=== PATIENT | male | born 1970 | race Caucasian/White ===

== ENCOUNTER → 2019-11-25 19:22 | Outpatient (BNVA) | payer BC, SELFPAY | PROVIDERS: Family Provider Family Medicine; Visit Provider Nurse Practitioner | DX: J10.1 Influenza due to other identified influenza virus with other respiratory manifestations (principal); R05 Cough; R50.9 Fever, unspecified | CPT/HCPCS: 87804 ==

== ENCOUNTER → 2021-10-26 15:10 | Outpatient (BNVA) | payer OTHER, SELFPAY | PROVIDERS: Family Provider Family Medicine; Visit Provider Nurse Practitioner | DX: Z20.822 Contact with and (suspected) exposure to COVID-19 (principal) | CPT/HCPCS: 87635 ==

== ENCOUNTER 2022-02-07 04:59 | Emergency (ER) | payer BC, SELFPAY ==
[2022-02-07 05:01] VITALS: BP 162/102; PULSE 66; RESP 22; TEMP 36.5; O2SAT 92; BMI 31.1
--- NOTE | 2022-02-07 05:21 | CTR_ITS ---
PROCEDURE INFORMATION: Exam: CT Abdomen And Pelvis Without Contrast Exam date and time: 02/07/2022 5:31 AM Age: 51 years old Clinical indication: Abdominal pain; Localized; Prior surgery; Surgery date: 6+ months; Surgery type: Left inguinal hernia repair; Patient HX: C/O llq/back pain. ; Additional info: Left flank pain TECHNIQUE: Imaging protocol: Computed tomography of the abdomen and pelvis without contrast. Radiation optimization: All CT scans at this facility use at least one of these dose optimization techniques: automated exposure control; mA and/or kV adjustment per patient size (includes targeted exams where dose is matched to clinical indication); or iterative reconstruction. COMPARISON: [facility] Abdomen Limited 08/01/2018 8:32 AM RADIATION DOSE METRICS: Total DLP (mGy-cm): [id number] FINDINGS: Liver: Fatty liver. Gallbladder and bile ducts: Small stone noted in the gallbladder. Cholelithiasis. No pericholecystic fluid. No gallbladder wall thickening. Pancreas: No ductal dilation. Spleen: There is splenic granulomas. Adrenal glands: Normal. No mass. Kidneys and ureters: Nonobstructing calculus in the lower pole of the right kidney. No right hydronephrosis. Mild left hydronephrosis from a 3 mm stone in the proximal ureter and a 3-4 mm stone in the distal ureter just slightly proximal to the UVJ. Stomach and bowel: No obstruction. No mucosal thickening. Appendix: No evidence of appendicitis. Intraperitoneal space: No free air. No significant fluid collection. Vasculature: No abdominal aortic aneurysm. Lymph nodes: No enlarged lymph nodes. Urinary bladder: Unremarkable as visualized. Reproductive: Unremarkable as visualized. Bones/joints: Diffuse osteopenia which may be secondary to a metabolic/renal abnormality, correlate clinically. No acute fracture. Soft tissues: Unremarkable. CT/CT kidney stone [id number] IMPRESSION: Mild left hydronephrosis from a 3 mm stone in the proximal ureter and a 3-4 mm stone in the distal ureter just slightly proximal to the UVJ.
--- NOTE | 2022-02-07 05:24 | W.ED.BACK ---
Documented by User: Mahesh Torrez DO 02/07/22 06:01 HPI - Back Pain/Injury General: Chief Complaint: Back Pain/Injury Stated Complaint: low back pain, abd pain Time Seen by Provider: 02/07/22 05:21 History of Present Illness: 51-year-old gentleman with a history of kidney stones in the distant past. He presents with sudden onset left-sided flank and abdominal pain starting a couple hours ago. It woke him from sleep. He has vomited 2-3 times. He notes that he had dark urine. He is drank a couple of bottles of water without improvement in his urine color. He states he is in quite a bit of pain. No fever. No diarrhea. MD elicited complaint: back pain Onset (ago): hour(s) Timing: constant Severity: moderate Similar Symptoms Previously: Yes Quality: sharp and stabbing Location: left flank Radiation: abdomen Exacerbating factors: none Relieving factors: none Context: history of kidney stones Associated symptoms: Reports abdominal pain, chills, nausea and vomiting; Deny change in bowel habits, fecal incontinence or fever(s) Review of Systems Const: Reports: chills; Denies: fever(s) Card: Denies: chest pain Resp: Denies: dyspnea GI: Reports: abdominal pain, nausea and vomiting; Denies: fecal incontinence or change in bowel habits Musc: Reports: back pain; Denies: extremity pain Skin/Breast: Denies: rash PFSH ED PFSH: Social History Smoking and tobacco status: current some day smoker Physical Exam Const: COMMON NORMALS: no acute distress HENMT: COMMON NORMALS: normocephalic, atraumatic and Normal external nose present HEAD & SCALP: normocephalic and atraumatic NOSE: Normal external nose present and Normal nares present Eye: COMMON NORMALS: Equal, round and reactive pupils present and EOMs intact bilaterally PUPIL: Yes Equal, round and reactive pupils present Neck/C-Spine: GENERAL: Yes trachea midline Resp: COMMON NORMALS: normal respiratory effort, No use of accessory muscles and clear to auscultation bilaterally AUSCULTATION: clear to auscultation bilaterally Cardio: COMMON NORMALS: regular rate and regular rhythm RATE: regular rate RHYTHM: regular rhythm GI: COMMON NORMALS: Soft to palpation INSPECTION: Yes abdominal distension (Mild) PALPATION: Yes Soft to palpation and Yes Tenderness to palpation present (GI) Details: LUQ : BLADDER/KIDNEY EXAM: Yes CVA tenderness on the left Back/Pelvis: GENERAL BACK: Yes CVA tenderness CVA tenderness: left Extremity: COMMON NORMALS: normal to inspection Neuro: RODERICK COMA SCALE: document GCS findings Roderick coma scale eye opening: Spontaneous [place] coma scale verbal response: Orientated Roderick coma scale motor response: Obey commands [place] coma scale total score: 15 Course Vital Signs: Vital signs: Vital Signs Temperature 97.7 F 02/07/22 05:01 Pulse Rate 69 02/07/22 07:33 Respiratory Rate 15 02/07/22 07:33 Blood Pressure 135/86 02/07/22 07:33 Pulse Oximetry 96 02/07/22 07:33 MDM - Back Pain/Injury Medical Decision Making Left flank and left abdominal pain in a gentleman with dark urine, and a history of kidney stones. No fever. No vomiting here. He is received a milligram of Dilaudid, 4 of Zofran, and is getting IV fluids. CT has been done and read is pending. He has not been able to give us urine sample yet. He will be checked out to Dr. Cheatham at shift change. Labs : 02/07/22 05:15 02/07/22 05:15 Radiology Impressions Abdomen/Pelvis CT 02/07/22 05:21 IMPRESSION: Mild left hydronephrosis from a 3 mm stone in the proximal ureter and a 3-4 mm stone in the distal ureter just slightly proximal to the UVJ. Laboratory Results WBC 8.4 10^3/uL (4.0-10.0) 02/07/22 05:15 RBC 5.28 10^6/uL (4.1-5.3) 02/07/22 05:15 Hgb 16.0 g/dL (11.7-16.6) 02/07/22 05:15 Hct 47.5 % (42.0-52.0) 02/07/22 05:15 MCV 90.0 fl (80-94) 02/07/22 05:15 MCH 30.3 pg (28.0-34.0) 02/07/22 05:15 MCHC 33.7 g/dL (30.0-36.0) 02/07/22 05:15 RDW 12.9 % (12.1-15.1) 02/07/22 05:15 Plt Count 258 10^3/cmm (130-400) 02/07/22 05:15 MPV 10.8 fL (7.4-10.4) H 02/07/22 05:15 Neut % (Auto) 70.6 % 02/07/22 05:15 Lymph % (Auto) 18.3 % 02/07/22 05:15 [place] % (Auto) 9.0 % 02/07/22 05:15 Eos % (Auto) 1.3 % 02/07/22 05:15 Baso % (Auto) 0.4 % 02/07/22 05:15 Neut # (Auto) 5.93 10^3/uL (1.8-7.7) 02/07/22 05:15 Lymph # (Auto) 1.5 10^3/uL (0.8-4.8) 02/07/22 05:15 [place] # (Auto) 0.8 10^3/uL (0.2-0.9) 02/07/22 05:15 Eos # (Auto) 0.1 10^3/uL (0.0-0.8) 02/07/22 05:15 Baso # (Auto) 0.0 10^3/uL (0.0-0.1) 02/07/22 05:15 Nucleated RBC % (auto) 0 % 02/07/22 05:15 Nucleated RBCs # 0.0 /100WBC 02/07/22 05:15 Sodium 139 mmol/L (136-145) 02/07/22 05:15 Potassium 3.6 mmol/L (3.5-5.1) 02/07/22 05:15 Chloride 104 mmol/L (98-107) 02/07/22 05:15 Carbon Dioxide 23 mmol/L (22-29) 02/07/22 05:15 Anion Gap 15.6 (5-19) 02/07/22 05:15 BUN 14 mg/dL (6-20) 02/07/22 05:15 Creatinine 0.9 mg/dL (0.7-1.2) 02/07/22 05:15 GFR Calculation 88.6 mL/min (90-130) L 02/07/22 05:15 Glucose 123 mg/dL (65-115) H 02/07/22 05:15 Calculated Osmolality 290 mOsm/kg (285-295) 02/07/22 05:15 Calcium 9.4 mg/dL (8.5-10.5) 02/07/22 05:15 Total Bilirubin 0.4 mg/dL (0.15-1.2) 02/07/22 05:15 AST 23 U/L (0-40) 02/07/22 05:15 ALT 30 U/L (0-41) 02/07/22 05:15 Alkaline Phosphatase 139 IU/L (40-130) H 02/07/22 05:15 C-Reactive Protein 12.6 mg/L (0.0-4.9) H 02/07/22 05:15 Total Protein 7.1 g/dL (6.6-8.7) 02/07/22 05:15 Albumin 4.4 g/dL (3.5-5.2) 02/07/22 05:15 Globulin 2.7 g/dL (1.3-4.6) 02/07/22 05:15 Lipase 35 U/L (13-60) 02/07/22 05:15 Urine Color Yellow (Yellow) 02/07/22 06:55 Urine Appearance Clear (CLEAR) 02/07/22 06:55 Urine pH 5 (5-7) 02/07/22 06:55 Ur Specific [place] 1.015 (1.005-1.030) 02/07/22 06:55 Urine Protein Neg (Negative) 02/07/22 06:55 Urine Glucose (UA) Norm (Normal) 02/07/22 06:55 Urine Ketones Negative (Negative) 02/07/22 06:55 Urine Blood 3+ (Negative) H 02/07/22 06:55 Urine Nitrate Negative (Negative) 02/07/22 06:55 Urine Bilirubin Neg (Negative) 02/07/22 06:55 Urine Urobilinogen Norm mg/dL (Negative) 02/07/22 06:55 Ur Leukocyte Esterase Negative (Negative) 02/07/22 06:55 Urine RBC 40-50 /hpf (0-2) H 02/07/22 06:55 Urine WBC Rare /hpf (0-5) 02/07/22 06:55 Ur Squamous Epith Cells Rare /hpf (0-5) 02/07/22 06:55 Calcium Oxalate Crystal 0-4 /hpf H 02/07/22 06:55 Amorphous Sediment Not Reportable 02/07/22 06:55 Urine Bacteria Trace /hpf (NONE) 02/07/22 06:55 Urine Mucus Trace /hpf 02/07/22 06:55 Discharge Plan Discharge Patient Disposition: Home Clinical Impression: Left nephrolithiasis Condition: Stable Prescriptions: New hydrocodone-acetaminophen 5-325 mg tablet 1 tab PO Q6H PRN (Reason: pain) Qty: 20 0RF promethazine 25 mg tablet 25 mg PO Q6H PRN (Reason: nausea and vomiting) Qty: 20 0RF tamsulosin 0.4 mg capsule 0.4 mg PO DAILY Qty: 14 0RF No Action sulfasalazine 500 mg tablet 1 gm PO TID 0RF Discharge Orders: Discharge ED (Routine); Ordered 02/07/22 Ordered By: Nicholas Cheatham Discharge Diet: Usual diet Discharge Activity: Increase activity as tolerated Patient Instructions: Opioid Safety Activity Restrictions/Additional Instructions: health plan manager will make arrangements for you to follow-up with urology strain urine for analysis if passed. Sign Out Sign Out Data: Patient Sign Out occurred on 02/07/22 at 06:40. Patient's care was discussed, and care was transferred from to Nicholas Cheatham DO. Coding Level of Care Code ED Devops Developer for [place] Fwd Exam Comprehensive Documented by User: Nicholas Cheatham DO 02/07/22 10:45 HPI - Back Pain/Injury General: Chief Complaint: Back Pain/Injury Stated Complaint: low back pain, abd pain Time Seen by Provider: 02/07/22 05:21 PFSH ED PFSH: Social History Smoking and tobacco status: current some day smoker Physical Exam Neuro: RODERICK COMA SCALE: document GCS findings [place] coma scale total score: 15 Course Vital Signs: Vital signs: Vital Signs Temperature 97.7 F 02/07/22 05:01 Pulse Rate 69 02/07/22 07:33 Respiratory Rate 15 02/07/22 07:33 Blood Pressure 135/86 02/07/22 07:33 Pulse Oximetry 96 02/07/22 07:33 MDM - Back Pain/Injury Medical Decision Making Left flank and left abdominal pain in a gentleman with dark urine, and a history of kidney stones. No fever. No vomiting here. He is received a milligram of Dilaudid, 4 of Zofran, and is getting IV fluids. CT has been done and read is pending. He has not been able to give us urine sample yet. He will be checked out to Dr. Cheatham at shift change. Patient has a 3 mm stone proximally in the left ureter and a 3 to 4 mm stone at the U UVJ.Will discharge home with Flomax strain urine tamsulosin: Hydrocodone Zofran to use as needed follow-up with Dr. Lynch. If pain uncontrolled return. Medical Records I reviewed the patient's medical records. Labs I reviewed the patient's lab results. : 02/07/22 05:15 02/07/22 05:15 Radiology Impressions Abdomen/Pelvis CT 02/07/22 05:21 IMPRESSION: Mild left hydronephrosis from a 3 mm stone in the proximal ureter and a 3-4 mm stone in the distal ureter just slightly proximal to the UVJ. Laboratory Results WBC 8.4 10^3/uL (4.0-10.0) 02/07/22 05:15 RBC 5.28 10^6/uL (4.1-5.3) 02/07/22 05:15 Hgb 16.0 g/dL (11.7-16.6) 02/07/22 05:15 Hct 47.5 % (42.0-52.0) 02/07/22 05:15 MCV 90.0 fl (80-94) 02/07/22 05:15 MCH 30.3 pg (28.0-34.0) 02/07/22 05:15 MCHC 33.7 g/dL (30.0-36.0) 02/07/22 05:15 RDW 12.9 % (12.1-15.1) 02/07/22 05:15 Plt Count 258 10^3/cmm (130-400) 02/07/22 05:15 MPV 10.8 fL (7.4-10.4) H 02/07/22 05:15 Neut % (Auto) 70.6 % 02/07/22 05:15 Lymph % (Auto) 18.3 % 02/07/22 05:15 [place] % (Auto) 9.0 % 02/07/22 05:15 Eos % (Auto) 1.3 % 02/07/22 05:15 Baso % (Auto) 0.4 % 02/07/22 05:15 Neut # (Auto) 5.93 10^3/uL (1.8-7.7) 02/07/22 05:15 Lymph # (Auto) 1.5 10^3/uL (0.8-4.8) 02/07/22 05:15 [place] # (Auto) 0.8 10^3/uL (0.2-0.9) 02/07/22 05:15 Eos # (Auto) 0.1 10^3/uL (0.0-0.8) 02/07/22 05:15 Baso # (Auto) 0.0 10^3/uL (0.0-0.1) 02/07/22 05:15 Nucleated RBC % (auto) 0 % 02/07/22 05:15 Nucleated RBCs # 0.0 /100WBC 02/07/22 05:15 Sodium 139 mmol/L (136-145) 02/07/22 05:15 Potassium 3.6 mmol/L (3.5-5.1) 02/07/22 05:15 Chloride 104 mmol/L (98-107) 02/07/22 05:15 Carbon Dioxide 23 mmol/L (22-29) 02/07/22 05:15 Anion Gap 15.6 (5-19) 02/07/22 05:15 BUN 14 mg/dL (6-20) 02/07/22 05:15 Creatinine 0.9 mg/dL (0.7-1.2) 02/07/22 05:15 GFR Calculation 88.6 mL/min (90-130) L 02/07/22 05:15 Glucose 123 mg/dL (65-115) H 02/07/22 05:15 Calculated Osmolality 290 mOsm/kg (285-295) 02/07/22 05:15 Calcium 9.4 mg/dL (8.5-10.5) 02/07/22 05:15 Total Bilirubin 0.4 mg/dL (0.15-1.2) 02/07/22 05:15 AST 23 U/L (0-40) 02/07/22 05:15 ALT 30 U/L (0-41) 02/07/22 05:15 Alkaline Phosphatase 139 IU/L (40-130) H 02/07/22 05:15 C-Reactive Protein 12.6 mg/L (0.0-4.9) H 02/07/22 05:15 Total Protein 7.1 g/dL (6.6-8.7) 02/07/22 05:15 Albumin 4.4 g/dL (3.5-5.2) 02/07/22 05:15 Globulin 2.7 g/dL (1.3-4.6) 02/07/22 05:15 Lipase 35 U/L (13-60) 02/07/22 05:15 Urine Color Yellow (Yellow) 02/07/22 06:55 Urine Appearance Clear (CLEAR) 02/07/22 06:55 Urine pH 5 (5-7) 02/07/22 06:55 Ur Specific [place] 1.015 (1.005-1.030) 02/07/22 06:55 Urine Protein Neg (Negative) 02/07/22 06:55 Urine Glucose (UA) Norm (Normal) 02/07/22 06:55 Urine Ketones Negative (Negative) 02/07/22 06:55 Urine Blood 3+ (Negative) H 02/07/22 06:55 Urine Nitrate Negative (Negative) 02/07/22 06:55 Urine Bilirubin Neg (Negative) 02/07/22 06:55 Urine Urobilinogen Norm mg/dL (Negative) 02/07/22 06:55 Ur Leukocyte Esterase Negative (Negative) 02/07/22 06:55 Urine RBC 40-50 /hpf (0-2) H 02/07/22 06:55 Urine WBC Rare /hpf (0-5) 02/07/22 06:55 Ur Squamous Epith Cells Rare /hpf (0-5) 02/07/22 06:55 Calcium Oxalate Crystal 0-4 /hpf H 02/07/22 06:55 Amorphous Sediment Not Reportable 02/07/22 06:55 Urine Bacteria Trace /hpf (NONE) 02/07/22 06:55 Urine Mucus Trace /hpf 02/07/22 06:55 Discharge Plan Discharge Patient Disposition: Home Clinical Impression: Left nephrolithiasis Condition: Stable Prescriptions: New hydrocodone-acetaminophen 5-325 mg tablet 1 tab PO Q6H PRN (Reason: pain) Qty: 20 0RF promethazine 25 mg tablet 25 mg PO Q6H PRN (Reason: nausea and vomiting) Qty: 20 0RF tamsulosin 0.4 mg capsule 0.4 mg PO DAILY Qty: 14 0RF No Action sulfasalazine 500 mg tablet 1 gm PO TID 0RF Discharge Orders: Discharge ED (Routine); Ordered 02/07/22 Ordered By: Nicholas Cheatham Discharge Diet: Usual diet Discharge Activity: Increase activity as tolerated Patient Instructions: Opioid Safety Activity Restrictions/Additional Instructions: health plan manager will make arrangements for you to follow-up with urology strain urine for analysis if passed. Sign Out Sign Out Data: Patient Sign Out occurred on 02/07/22 at 06:40. Patient's care was discussed, and care was transferred from to Nicholas Cheatham DO. Coding Level of Care Code ED Devops Developer for [place] Fwd Exam Comprehensive
[2022-02-07 05:31] LABS: Basophils % 0.4 %; Eosinophils # 0.1 10^3/uL (0.0-0.8); Eosinophils % 1.3 %; Hematocrit 47.5 % (42.0-52.0); Lymphocytes # 1.5 10^3/uL (0.8-4.8); Lymphocytes % 18.3 %; Mean Corpuscular HGB Conc 33.7 g/dL (30.0-36.0); Mean Corpuscular Hemoglobin 30.3 pg (28.0-34.0); Mean Platelet Volume 10.8 fL (7.4-10.4); Monocytes # 0.8 10^3/uL (0.2-0.9); Neutrophils # 5.93 10^3/uL (1.8-7.7); Neutrophils % 70.6 %; Nucleated Red Blood Cells % 0 %; Platelet Count 258 10^3/cmm (130-400); Red Blood Count 5.28 10^6/uL (4.1-5.3); Red Cell Distribution Width 12.9 % (12.1-15.1); White Blood Count 8.4 10^3/uL (4.0-10.0)
[2022-02-07] MEDS: sodium chloride 0.9% 1,000 ML 999 ML IV (05:41)
[2022-02-07] MEDS: ondansetron 2 mg/ML SDV 2 mL 4 MG IVP (05:41)
[2022-02-07] MEDS: HYDROmorphone 1 mg/mL INJ 1 mL IVP (05:41)
[2022-02-07 05:47] LABS: Alanine Aminotransferase 30 U/L (0-41); Albumin Level 4.4 g/dL (3.5-5.2); Alkaline Phosphatase 139 IU/L (40-130); Anion Gap 15.6 (5-19); Aspartate Amino Transferase 23 U/L (0-40); Blood Urea Nitrogen 14 mg/dL (6-20); C Reactive Protein 12.6 mg/L (0.0-4.9); Calcium 9.4 mg/dL (8.5-10.5); Carbon Dioxide 23 mmol/L (22-29); Chloride 104 mmol/L (98-107); Globulin 2.7 g/dL (1.3-4.6); Glomerular Filtration Rate 88.6 mL/min (90-130); Glucose 123 mg/dL (65-115); Lipase 35 U/L (13-60); Osmolality Calculated 290 mOsm/kg (285-295); Potassium 3.6 mmol/L (3.5-5.1); Sodium 139 mmol/L (136-145); Total Bilirubin 0.4 mg/dL (0.15-1.2); Total Protein 7.1 g/dL (6.6-8.7)
[2022-02-07 05:50] VITALS: BP 141/94; PULSE 65; RESP 16; O2SAT 95
[2022-02-07 06:56] VITALS: BP 141/82; PULSE 62; RESP 16; O2SAT 96
[2022-02-07 07:17] LABS: Add Urine Microscopic? YES; Bilirubin Urine Neg (Negative); Blood Urine 3+ (Negative); Glucose Urine UA Norm (Normal); Ketones Urine Negative (Negative); Leukocyte Esterase Urine Negative (Negative); Nitrate Urine Negative (Negative); Protein Urine Neg (Negative); Specific Gravity, Urine 1.015 (1.005-1.030); Urine Appearance Clear (CLEAR); Urine Color Yellow (Yellow); Urobilinogen Urine Norm (Negative); pH Urine 5 (5-7)
[2022-02-07 07:20] LABS: RBC Urine 40-50 /hpf (0-2); WBC Urine RARE /hpf (0-5)
[2022-02-07 07:21] LABS: Add Urine Culture? Yes; Bacteria Urine TRACE /hpf; Calcium Oxalate Crystals Urine 0-4 /hpf; Mucus Urine TRACE /hpf; Squamous Epithelial Cell Urine RARE /hpf (0-5)
[2022-02-07 07:33] VITALS: BP 135/86; PULSE 69; RESP 15; O2SAT 96
--- NOTE | 2022-02-09 15:00 | DCPLANNER ---
Addendum entered by Michelle Amezcua 05/20/22 11:49: Patient had a follow up appointment scheduled for 04.15.22 with urology - patient did not attend appointment. Addendum entered by Michelle Amezcua 03/10/22 09:08: Appointment was cancelled - patient passed stone Addendum entered by Michelle Amezcua 03/09/22 10:02: Patient has a follow up appointment scheduled for Friday, April 15, 2022 at 8:[address] Lynch at urology. Clinic will call patient with appointment information. Original Note: manager medical affairs had message to schedule a follow up appointment for patient with urology. manager medical affairs sent patients information to the front office staff at urology. Patients information will be printed and reviewed. Clinic will call patient with appointment information.
== END 2022-02-07 07:34 | disposition home or self-care (01) ==
PROVIDERS: Emergency Medicine; Emergency Provider Family Medicine
DX: N20.0 Calculus of kidney (principal)
CPT/HCPCS: 74176; 80053; 81001; 83690; 85025; 86140; 87086; 96361; 96374; 96375; 99284; J1170; J2405; J7030

== ENCOUNTER 2022-05-31 03:56 | Emergency (ER) | payer BC, SELFPAY ==
[2022-05-31 04:04] VITALS: BP 132/77; PULSE 85; RESP 18; TEMP 36.4; O2SAT 94; BMI 28.8
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
[2022-05-31] MEDS: sodium chloride 0.9% 1,000 ML 999 ML IV (04:38)
[2022-05-31 04:51] VITALS: BP 130/82; RESP 18; O2SAT 96
[2022-05-31 05:34] VITALS: RESP 18
[2022-05-31] MEDS: morphine 4 mg/mL SDV 1 mL IVP (05:34)
[2022-05-31] MEDS: ondansetron 2 mg/ML SDV 2 mL 4 MG IVP (05:34)
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
[2022-05-31 06:40] VITALS: BP 122/76; PULSE 87; RESP 18; O2SAT 91
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
--- NOTE | 2022-05-31 07:10 | PC.NURSE ---
Pt resting in bed, CC in place. PERRL, pulses palpable x4. lung sounds clear bilat. bowel sounds present x4. skin pink/warm/dry. speech clear. speaking in complete sentences without difficulty. Alert and oriented x4.
[2022-05-31 07:30] VITALS: BP 108/85; PULSE 88; O2SAT 92
[2022-05-31] MEDS: ketorolac 30 mg/mL INJ 15 MG IVP (08:12)
[2022-05-31] MEDS: haloperidol inj 5 mg/mL INJ 1 mL 2 MG IVP (08:17)
[2022-05-31] MEDS: acetaminophen 500 mg Tablet 1000 MG PO (08:18)
[2022-05-31] MEDS: tetanus-dipt-pertussis 0.5 mL SDV IM (08:26)
== END 2022-05-31 09:19 | disposition home or self-care (01) ==
PROVIDERS: Emergency Provider Emergency Medicine
DX: S09.8XXA Other specified injuries of head, initial encounter (principal); E04.1 Nontoxic single thyroid nodule; V86.69XA Passenger of other special all-terrain or other off-road motor vehicle injured in nontraffic accident, initial encounter; F17.210 Nicotine dependence, cigarettes, uncomplicated; Z23 Encounter for immunization
CPT/HCPCS: 70450; 72125; 72131; 73060; 73502; 90471; 90715; 96361; 96374; 96375; 99285; J1630; J1885; J2270; J2405; J7030

== ENCOUNTER 2022-06-23 13:19 | Outpatient (CLI) | payer BC, OTHER, SELFPAY ==
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
== END 2022-06-23 13:20 | disposition home or self-care (01) ==
LOC: RAD 13:21
PROVIDERS: PCP Family Medicine; Visit Provider Family Medicine
DX: E04.1 Nontoxic single thyroid nodule (principal); I63.9 Cerebral infarction, unspecified; I67.89 Other cerebrovascular disease; S43.101A Unspecified dislocation of right acromioclavicular joint, initial encounter; X58.XXXA Exposure to other specified factors, initial encounter
CPT/HCPCS: 73000; 73030; 80053; 80061; 83036; 84439; 84443; 84481

== ENCOUNTER → 2024-03-31 08:13 | Outpatient (BNVA) | payer BC, SELFPAY | PROVIDERS: PCP Family Medicine; Visit Provider Family Medicine | DX: R05.9 Cough, unspecified (principal); J06.9 Acute upper respiratory infection, unspecified; B96.89 Other specified bacterial agents as the cause of diseases classified elsewhere | CPT/HCPCS: 87400; 87426 ==

== ENCOUNTER 2025-01-01 13:30 | Outpatient (CLI) | payer BC, SELFPAY ==
[2025-01-01 15:19] LABS: Hepatitis B Core IgM Non-Reactive (Nonreactive); Hepatitis B Surface AB < 3.5 (11.5-1000); Hepatitis C Virus Antibody Non-Reactive (Nonreactive)
== END 2025-01-01 13:31 | disposition home or self-care (01) ==
LOC: LAB 13:32
PROVIDERS: Visit Provider Dietitian, Registered
DX: R74.8 Abnormal levels of other serum enzymes (principal)
CPT/HCPCS: 36415; 83516; 84075; 84080; 86038; 86705; 86706; 86803

== ENCOUNTER 2025-04-05 11:38 | Outpatient (CLI) | payer BC, SELFPAY ==
--- NOTE | 2025-04-05 11:45 | CTR_ITS ---
PROCEDURE INFORMATION: Exam: CT Abdomen And Pelvis With Contrast Exam date and time: 04/05/2025 12:48 PM Age: 54 years old Clinical indication: Abdominal pain; Localized; Right upper quadrant (ruq); Prior surgery; Surgery date: 6+ months; Surgery type: Hernia; Ruq pain x 7 months intermittently, HX of crohn's dx; Additional info: Ruq pain/lower abdominal pain/hx crohn's dz TECHNIQUE: Imaging protocol: Computed tomography of the abdomen and pelvis with contrast. Radiation optimization: All CT scans at this facility use at least one of these dose optimization techniques: automated exposure control; mA and/or kV adjustment per patient size (includes targeted exams where dose is matched to clinical indication); or iterative reconstruction. Contrast material: OMNI 350; Contrast volume: 100 ml; Contrast route: INTRAVENOUS (IV); COMPARISON: CT kidney stone [id number] 02/07/2022 5:31 AM RADIATION DOSE METRICS: Total DLP (mGy-cm): 727.84 FINDINGS: Liver: Normal. No mass. Gallbladder and biliary ducts: Cholecystectomy. Pancreas: Normal. No ductal dilation. Spleen: Normal. No splenomegaly. Adrenal glands: Normal. No mass. Kidneys and ureters: Normal. No hydronephrosis. Stomach and bowel: Unremarkable. No obstruction. No mucosal thickening. Appendix: No evidence of appendicitis. Intraperitoneal space: Unremarkable. No free air. No significant fluid collection. Vasculature: Unremarkable. No abdominal aortic aneurysm. Lymph nodes: Unremarkable. No enlarged lymph nodes. Urinary bladder: Unremarkable as visualized. Reproductive: There is mild right ureteropelvic caliectasis secondary to a 5 mm right UVJ calculus. There is increased soft tissue density surrounding this calculus and a small mass versus inflammation may be present. Cystoscopy is recommended. Bones/joints: Unremarkable. No acute fracture. Soft tissues: Unremarkable. CT/CT abdomen pelvis w con* [id number] IMPRESSION: Mildly obstructing distal right ureteral calculus but there is the possibility of an associated mass. Cystoscopy recommended. COMMENTS: Consistent with the [employer]'s Incidental Findings Committee white paper (J Am Eduardo Radiol 2018): Any incidental renal lesion less than 1 cm or classified as too small to characterize, or any incidental cystic renal lesion characterized as simple-appearing, is likely benign. No follow-up imaging is recommended for these lesions per consensus recommendations based on imaging criteria.
[2025-04-05] MEDS: iohexol 350 mg/mL 500 mL Btl (per mL) PO (12:22)
[2025-04-05] MEDS: iohexol 350 mg/mL 500 mL Btl (per mL) IV (12:50)
== END 2025-04-05 11:39 | disposition home or self-care (01) ==
LOC: RAD 11:39
PROVIDERS: PCP Family Medicine; Visit Provider Surgery
DX: N20.1 Calculus of ureter (principal); K50.00 Crohn's disease of small intestine without complications
CPT/HCPCS: 74177

== ENCOUNTER 2025-04-20 03:33 | Emergency (ER) | payer BC, SELFPAY ==
[2025-04-20] VITALS (9 sets, daily range): BP systolic 112–162; BP diastolic 65–102; PULSE 61–73; RESP 16–17; TEMP 36.4; O2SAT 92–98; BMI 29.5
--- OUTSIDE RECORDS SUMMARY | 2025-04-20 03:39 | XMS_ITS | Patient Health Record ---
Author Organization [facility] Address [address] [place] [address] Care Team Providers Care Perinatal Educator Name Role Phone [facility], [facility] Primary Care Provider [facility] Unavailable [phone] Allergies No Known Allergies Reason For Referral No Information Medications Medication SIG (Take, Route, Frequency, Duration) Notes Start Date End Date Status hydrOXYzine HCl 50 MG Tablet TAKE 1/2 TO 1 TABLET BY MOUTH TWICE DAILY NEEDED FOR ANXIETY OR SLEEP; Duration: 30 Active sulfaSALAzine 500 MG Tablet 2 tablets Or ally three times a day Active Escitalopram Oxalate 20 MG Tablet TAKE 1 TABLET BY MOUTH EVERY DAY; Duration: 30 Active Social History Tobacco Use: Social History Observation Description Date Details (start date - stop date) Former Smoker NA - NA Social History Depression Screening Social Info Question Answer Notes PHQ-9 Little interest or p jr in doing things More than half the days Feeling down, depressed, or hopeless Nearly ever y day Trouble falling or staying asleep, or sleeping t oo much Nearly every day Feeling tired or having little energy Nearly barbara ry day Poor appetite or overeating Nearly every day Feeling bad about yourself, or that you are a failure, or have let yourself or your family down Nearly every day Trouble concentrating on thi ngs, such as reading the newspaper or watching television Nearly every day Moving or speaking so slowly that other people could have noticed. Or the opposite ? being so fidgety or restless that you have been moving around a lot more than usual Several days Thoughts that you would be b phani off , or of hurting yourself in some way Not at all Total Score 21 Interpretation Severe Depression Drugs/Alcohol: Social Info Question Answer Notes Alcohol Screen (Audit-C) Did you have a drink containing alcohol in the past year? Yes How often did you have a drink containing alcohol in the past year? Monthly or less (1 point) How many drinks did you have on a typical day when you were drinking in the past year? 1 or 2 drinks (0 point) How often did you have 6 or more drinks on one occasion in the past year? Never (0 point) Points 1 Interpretation Negative Drugs Have you used drugs other than those for medical reasons in the past 12 months? No Tobacco Use: Social Info Question Answer Notes xTobacco Use/Smoking Are you a former smoker How long has it been since you last smoked? > 10 years Additional Details Category Social Info Options Details Drugs/Alcohol: Do you smoke marijuana? De nies Do you drink alcohol? Yes, occas ionally Section Notes: 03/13/2022 Problems Problem Type SNOMED Code ICD Code Onset Dates Problem Status W/U Status Risk Notes Problem Anxiety (22166951) Anxiety (F41.9) Active confirmed Problem Depression (901308079) Other depression (F32.89) Active confirmed Problem Crohn's disease of large bowel (2910928) Crohn's disease of large intestine without complication (K50.10) Active confirmed Plan Of Treatment No Information Insurance Providers Payer Name Payer Address Payer Phone Subscriber Number Group Number Insured Name Patient Relationship to Insured Coverage Start Date Coverage End Date [place] [address] [place] [phone] [id number] Navi Fletcher Self - patient is the insured Medical (General) History Medical History History ICD Code Chrohn's Surgical History Surgery Date(Month/Year) hernia repair 2017 right knee arthroscopy 2021 Colonoscopy 2015
--- OUTSIDE RECORDS SUMMARY | 2025-04-20 03:39 | XMS_ITS | Clinical Summary ---
Author Organization [employer] [facility] Address [address] 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
--- OUTSIDE RECORDS SUMMARY | 2025-04-20 03:39 | XMS_ITS | Encounter Summary ---
Author Organization [employer] [facility] Address [address] [place] [address] Care Team Providers Care Cold Reduction Roller Name Role Phone Unavailable Primary Care Provider Unavailabl e Encounter Details Date Type Department Care Team (Latest Contact Info) Description 09/05/2003 Outpatient Historical [facility] Aquilino Hilton MD [address] [place], [place] [id number] ALLERGIC RHINITIS NOS (Primary Dx); JOINT PAIN-L/LEG Social History Tobacco Use Types Packs/Day Years Used Date Smoking Tobacco: Never Assessed Sex and Gender Information Value Date Recorded Sex Assigned at Not on file 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
--- OUTSIDE RECORDS SUMMARY | 2025-04-20 03:39 | XMS_ITS | Encounter Summary ---
Author Organization [employer] [facility] Address [address] [place] [address] Care Team Providers Care Roving Changer Name Role Phone Unavailable Primary Care Provider Unavailabl e Encounter Details Date Type Department Care Team (Latest Contact Info) Description 06/13/1999 Outpatient Historical [facility] Mazin Sullivan, Maury Flores MD [address] [place] [id number] Unspecified sinusitis (chronic) (Primary Dx) Social History Tobacco Use Types Packs/Day Years Used Date Smoking Tobacco: Never Assessed Sex and Gender Information Value Date Recorded Sex Assigned at Not on file 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
--- OUTSIDE RECORDS SUMMARY | 2025-04-20 03:39 | XMS_ITS | Encounter Summary ---
Author Organization [employer] [facility] Address [address] [place] [address] Care Team Providers Care Ehr Trainer Name Role Phone Unavailable Primary Care Provider Unavailabl e Encounter Details Date Type Department Care Team (Latest Contact Info) Description 03/06/2003 Outpatient Historical [facility] Aquilino Hilton MD [address], [place] [id number] ACUTE SINUSITIS NOS (Primary Dx); ALLERGIC RHINITIS NEC Social History Tobacco Use Types Packs/Day Years Used Date Smoking Tobacco: Never Assessed Sex and Gender Information Value Date Recorded Sex Assigned at Not on file 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
[2025-04-20 03:46] LABS: Hematocrit 47.4 % (37-53); Hemoglobin 15.60 g/dL (11.27-16.99); Mean Corpuscular HGB Conc 32.9 g/dL (30-55); Mean Corpuscular Hemoglobin 30.3 pg (27-33); Mean Corpuscular Volume 92.0 fl (82-101); Nucleated Red Blood Cells % 0 %; Platelet Count 234 10^3/cmm (157-399); Red Blood Count 5.15 10^6/uL (3.85-5.65); White Blood Count 9.75 10^3/uL (3.29-11.43)
[2025-04-20 04:00] LABS: Alanine Aminotransferase 22 U/L (0-41); Albumin Level 4.2 g/dL (3.5-5.2); Alkaline Phosphatase 153 U/L (40-130); Anion Gap 14.1 (5-19); Aspartate Amino Transferase 18 U/L (0-40); Blood Urea Nitrogen 10 mg/dL (6-20); Calcium 9.3 mg/dL (8.5-10.5); Carbon Dioxide 28 mmol/L (22-29); Chloride 105 mmol/L (98-107); Creatinine Clr Calc Pharmacy 116.1478; Globulin 2.8 g/dL (1.3-4.6); Glucose 121 mg/dL (65-115); Lipase 46 U/L (13-60); Osmolality Calculated 296 mOsm/kg (285-295); Potassium 4.1 mmol/L (3.5-5.1); Sodium 143 mmol/L (136-145); Total Protein 7.0 g/dL (6.6-8.7)
--- NOTE | 2025-04-20 04:00 | ED_ITS ---
HPI - Abdominal Pain 2 General: Chief Complaint: Abdominal Pain Stated Complaint: R side Upper ABD Pain History of Present Illness: 54-year-old male presents emergency room with complaints of right upper quadrant abdominal pain. He has been being evaluated by Dr. Cole on outpatient basis for close biliary colic they did a CT found that he had a kidney stone but seems to pass he has more focused right upper quadrant pain with nausea and loose stools overnight no hematochezia or melena. No fever Associated Symptoms: Reports nausea; Denies chills, coffee ground emesis, dysuria, fever(s), hematochezia, hematemesis and melena Related Data Home Medications ?Medication ?Instructions ?Recorded ?Confirmed sulfasalazine 500 mg tablet 1 g PO TID 02/27/25 Previous Rx's ?Medication ?Instructions ?Recorded hydrocodone 5 mg-acetaminophen 325 1 tab PO Q6H PRN pa in #15 tabs 04/20/25 mg tablet promethazine 25 mg tablet 25 mg PO Q6H PRN nausea and 04/20/25 vomiting #20 tabs Allergies Allergy/AdvReac Type Severity Reaction Status Date / Time No Known Allergies Allergy Verified 04/20/25 03:41 Review of Systems 2 Const: Denies: fever(s) or chills Card: Denies: chest pain Resp: Denies: dyspnea GI: Reports: abdominal pain and nausea; Denies: hematemesis, coffee ground emesis, hematochezia or melena : Denies: dysuria, urinary frequency or urinary urgency Musc: Denies: neck pain or back pain Skin/Breast: Denies: rash PFSH ED 2 PFSH: Medical History Separation of right acromioclavicular joint, type 3 Crohn's disease Cerebral microvascular disease White matter periventricular infarction Hydrocele, right Fatty liver Cholelithiases Facet arthropathy, lumbar History of kidney stones Surgical History History of right knee surgery History of inguinal hernia repair History of umbilical hernia repair Family History Denies family history of Diabetes CAD (coronary artery disease) Dementia Cancer Stroke Social History Smoking and tobacco/nicotine status: never used tobacco/nicotine Alcohol intake: current Alcohol intake frequency: 0-2 Drinks per Day Alcohol type: beer Substance/Drug Use: never Marital status: Number of children: 2 Current occupational status: employed Current occupation: shipping and receiving operator for [employer] Physical Exam 2 Const: GENERAL APPEARANCE: cooperative ORIENTATION/CONSCIOUSNESS: Yes awake, Yes oriented to person, Yes oriented to place and Yes oriented to time HENMT: COMMON NORMALS: normocephalic, atraumatic and hearing grossly normal bilaterally HEAD & SCALP: normocephalic and atraumatic Resp: COMMON NORMALS: normal respiratory effort, No retractions, No use of accessory muscles and clear to auscultation bilaterally AUSCULTATION: clear to auscultation bilaterally Cardio: COMMON NORMALS: regular rate, regular rhythm and No murmurs present (Cardio) RATE: regular rate RHYTHM: regular rhythm GI: COMMON NORMALS: Soft to palpation and No hepatosplenomegaly present A USCULTATION: Yes normoactive bowel sounds PALPATION: Yes Soft to palpation, No Tenderness to palpation present (GI), No Guarding due to palpation present (GI) and Yes No hepatosplenomegaly present Extremity: COMMON NORMALS: normal to inspection, capillary refill normal, no clubbing, cyanosis or edema, no calf tenderness and no pedal edema Neuro: SENSORIUM/ORIENTATION: Yes oriented to person, Yes oriented to place and Yes oriented to time Skin: COMMON NORMALS: no rashes or lesions noted GENERAL SKIN EXAM: no rashes or lesions noted Course 2 Vital Signs: Vital signs: Vital Signs Temperature 97.6 F 04/20/25 03:35 Pulse Rate 61 04/20/25 08:56 Respiratory Rate 16 04/20/25 08:56 Blood Pressure 117/74 04/20/25 08:56 Pulse Oximetry 95 04/20/25 08:56 Oxygen Delivery Me thod Room Air 04/20/25 05:51 MDM - Abdominal Pain Medical Decision Making CT shows no renal stone present ultrasound shows gallbladder sludge without hydrops or thickening of the gallbladder wall no leukocytosis mild elevation alk phos. Consult Dr. Childers on-call for surgery he recommends patient continue to follow-up as an outpatient for elective cholecystectomy discharged home. Advised patient on foods to avoid that may worsen symptoms can follow-up as he wishes with either Dr. Baker or Dr. Childers Medical Records I reviewed the patient's medical records. Lab Data I reviewed the patient's lab results. 04/20/25 03:38 04/20/25 03:38 Labs/Radiology: Radiology Impressions Abdomen/Pelvis CT 04/20/25 04:04 IMPRESSION: 1. Interval resolution of previously seen urolithiasis retained at the right ureterovesicular junction. 2. Cholelithiasis including a stone which appears to be impacted near the gallbladder neck or proximal cystic duct. No CT evidence of acute cholecystitis however right upper quadrant ultrasound could be considered if there is clinical concern. 3. Heterogenous attenuation of the osseous structures suggestive of osteopenia or underlying metabolic process. Recommend clinical correlation. Gallbladder Ultrasound 04/20/25 07:26 IMPRESSION: 1. Gallbladder sludge and stones. Stones were better visualized on the CT. Gallbladder is not hydropic. No pericholecystic fluid. 2. No hepatobiliary duct dilatation. 3. Negative RIGHT kidney. Mild hydronephrosis described on recent CT is not identified by ultrasound. This was only a very mild hydronephrosis. Laboratory Results WBC 9.75 10^3/uL (3.29-11.43) 04/20/25 03:38 RBC 5.15 10^6/uL (3.85-5.65) 04/20/25 03:38 Hgb 15.60 g/dL (11.27-16.99) 04/20/25 03:38 Hct 47.4 % (37-53) 04/20/25 03:38 MCV 92.0 fl (82-101) 04/20/25 03:38 MCH 30.3 pg (27-33) 04/20/25 03:38 MCHC 32.9 g/dL (30-55) 04/20/25 03:38 RDW 13.2 % (12.1-15.1) 04/20/25 03:38 Plt Count 234 10^3/cmm (157-399) 04/20/25 03:38 MPV 10.4 fL (7.4-10.4) 04/20/25 03:38 Neut % (Auto) 65.2 % 04/20/25 03:38 Lymph % (Auto) 24.3 % 04/20/25 03:38 [place] % (Auto) 9.1 % 04/20/25 03:38 Eos % (Auto) 0.7 % 04/20/25 03:38 Baso % (Auto) 0.3 % 04/20/25 03:38 Neut # (Auto) 6.35 10^3/uL (1.8-7.7) 04/20/25 03:38 Lymph # (Auto) 2.4 10^3/uL (0.8-4.8) 04/20/25 03:38 [place] # (Auto) 0.9 10^3/uL (0.2-0.9) 04/20/25 03:38 Eos # (Auto) 0.1 10^3/uL (0.0-0.8) 04/20/25 03:38 Baso # (Auto) 0.0 10^3/uL (0.0-0.1) 04/20/25 03:38 Nucleated RBC % (auto) 0 % 04/20/25 03:38 Nucleated RBCs # 0.0 /100WBC 04/20/25 03:38 Sodium 143 mmol/L (136-145) 04/20/25 03:38 Potassium 4.1 mmol/L (3.5-5.1) 04/20/25 03:38 Chloride 105 mmol/L (98-107) 04/20/25 03:38 Carbon Dioxide 28 mmol/L (22-29) 04/20/25 03:38 Anion Gap 14.1 (5-19) 04/20/25 03:38 BUN 10 mg/dL (6-20) 04/20/25 03:38 Creatinine 0.8 mg/dL (0.7-1.2) 04/20/25 03:38 GFR Calculation 100.4 mL/min (90-130) 04/20/25 03:38 Glucose 121 mg/dL (65-115) H 04/20/25 03:38 Calculated Osmolality 296 mOsm/kg (285-295) H 04/20/25 03:38 Calcium 9.3 mg/dL (8.5-10.5) 04/20/25 03:38 Total Bilirubin 0.3 mg/dL (0.15-1.2) 04/20/25 03:38 AST 18 U/L (0-40) 04/20/25 03:38 ALT 22 U/L (0-41) 04/20/25 03:38 Alkaline Phosphatase 153 U/L (40-130) H 04/20/25 03:38 Total Protein 7.0 g/dL (6.6-8.7) 04/20/25 03:38 Albumin 4.2 g/dL (3.5-5.2) 04/20/25 03:38 Globulin 2.8 g/dL (1.3-4.6) 04/20/25 03:38 Lipase 46 U/L (13-60) 04/20/25 03:38 Urine Color Yellow (Yellow) 04/20/25 04:39 Urine Appearance Clear (CLEAR) 04/20/25 04:39 Urine pH 5.5 (5-7) 04/20/25 04:39 Ur Specific [place] 1.027 (1.005-1.030) 04/20/25 04:39 Urine Protein 1+ (Negative) A 04/20/25 04:39 Urine Glucose (UA) Negative (Normal) 04/20/25 04:39 Urine Ketones Trace (Negative) 04/20/25 04:39 Urine Blood Negative (Negative) 04/20/25 04:39 Urine Nitrate Negative (Negative) 04/20/25 04:39 Urine Bilirubin Negative (Negative) 04/20/25 04:39 Urine Urobilinogen 1.0 mg/dL (Negative) 04/20/25 04:39 Ur Leukocyte Esterase Negative (Negative) 04/20/25 04:39 Urine RBC 0-2 /hpf (0-2) 04/20/25 04:39 Urine WBC 0-5 /hpf (0-5) 04/20/25 04:39 Ur Squamous Epith Cells 0-5 /hpf (0-5) 04/20/25 04:39 Amorphous Sediment Not Reportable 04/20/25 04:39 Urine Bacteria None seen /hpf (NONE) 04/20/25 04:39 Hyaline Casts 0.40 /lpf 04/20/25 04:39 All radiology interpretation(s) finalized by discharge Discharge Plan Discharge Patient Disposition: Home Clinical Impression: Biliary colic, Biliary sludge determined by ultrasound Condition: Stable Prescriptions: New hydrocodone-acetaminophen 5-325 mg tablet 1 tab PO Q6H PRN (Reason: pain) Qty: 15 0RF promethazine 25 mg tablet 25 mg PO Q6H PRN (Reason: nausea and vomiting) Qty: 20 0RF No Action sulfasalazine 500 mg tablet 1 g PO TID Discharge Orders: Discharge ED (Routine); Ordered 04/20/25 Ordered By: Nicholas Cheatham Referrals: Renée Hurd MD [Primary Care Provider, Family Practice] Discharge Diet: As Directed Discharge Activity: Resume usual activity Patient Instructions: Abdominal Pain (ED), Opioid Safety, Pain Management, Patient Portal & Debora Instructions Activity Restrictions/Additional Instructions: [email or web address]. It is very important that you follow up as instructed or that you return to the Emergency Department should you have concerns or if your condition changes or worsens in any way. You were seen in the emergency room with complaints of right upper quadrant abdominal pain CT showed the stone seen previously has passed. Ultrasound shows there is sludge in your gallbladder but there is no acute cholecystitis. You are given pain and nausea medications to use as needed. Follow-up with general surgery to schedule elective removal of your gallbladder. Avoid fatty foods red meats dairy products tomato-based products citrus foods as these can aggravate the gallbladder Print Language: Guyanese Coding Level of Care Code ED Manufacturing Intern for Michael Rendon
--- NOTE | 2025-04-20 04:04 | CTR_ITS ---
PROCEDURE INFORMATION: Exam: CT Abdomen And Pelvis Without Contrast Exam date and time: 04/20/2025 4:22 AM Age: 54 years old Clinical indication: Flank; Right upper quadrant (ruq); Prior surgery; Surgery date: 6+ months; Surgery type: Hernia repair x2; Patient arrives via pov for abdominal pain/gall bladder attack. Patient endorses ruq pain. Currently rating pain 6/10 which started 2100. Denies nausea, vomiting. Denies taking tylenol, ibuprofen. He was supposed to get his gallbladder removed but apparently Dr beltran found a kidney stone and surgery was delayed. ; Additional info: Flank pain TECHNIQUE: Imaging protocol: Computed tomography of the abdomen and pelvis without contrast. Radiation optimization: All CT scans at this facility use at least one of these dose optimization techniques: automated exposure control; mA and/or kV adjustment per patient size (includes targeted exams where dose is matched to clinical indication); or iterative reconstruction. COMPARISON: CT abdomen pelvis w con* [id number] 04/05/2025 12:48 PM RADIATION DOSE METRICS: Total DLP (mGy-cm): 870.6 FINDINGS: Lungs: Mild bibasilar atelectasis. Liver: Unremarkable. Gallbladder and biliary ducts: Biliary sludge and small gallstones including a stone which appears to be impacted near the gallbladder neck or proximal cystic duct. No pericholecystic fluid. Nondilated bile ducts. Pancreas: Unremarkable. Spleen: Punctate calcified granulomas. Splenules. Adrenal glands: No mass. Kidneys and ureters: No hydronephrosis or hydroureter. No calcified urolithiasis. Previously seen calculus at the right ureterovesicular junction has resolved. Stomach and bowel: Unremarkable stomach. Nondistended bowel loops. No inflammatory change. Appendix: No evidence of appendicitis. Intraperitoneal space: No free air. No significant fluid collection. Vasculature: Mild atherosclerosis. No abdominal aortic aneurysm. Lymph nodes: No pathologically enlarged lymph nodes. Urinary bladder: Decompressed which limits evaluation of the wall. Reproductive: Unremarkable as visualized. Bones/joints: Diffusely heterogenous attenuation of the osseous structures. Unchanged chronic focus in the left sacral ala, possibly a bone island. Soft tissues: Unremarkable. CT/CT kidney stone [id number] IMPRESSION: 1. Interval resolution of previously seen urolithiasis retained at the right ureterovesicular junction. 2. Cholelithiasis including a stone which appears to be impacted near the gallbladder neck or proximal cystic duct. No CT evidence of acute cholecystitis however right upper quadrant ultrasound could be considered if there is clinical concern. 3. Heterogenous attenuation of the osseous structures suggestive of osteopenia or underlying metabolic process. Recommend clinical correlation.
[2025-04-20 04:45] LABS: Glucose Urine UA Negative (Normal); Nitrate Urine Negative (Negative); Specific Gravity, Urine 1.027 (1.005-1.030)
[2025-04-20 04:50] LABS: Add Urine Microscopic? YES
[2025-04-20] MEDS: morphine 4 mg/mL SDV 1 mL IVP (05:03)
[2025-04-20] MEDS: ondansetron 2 mg/ML SDV 2 mL 4 MG IVP (05:04)
[2025-04-20] MEDS: HYDROmorphone 0.5 MG/0.5 ML INJ IVP (05:49)
--- NOTE | 2025-04-20 07:26 | US_ITS ---
WS: [id number] RIGHT UPPER QUADRANT ULTRASOUND HISTORY: pain/elv alk phos COMPARISON: 11/24/2024, CT 04/20/2025 Liver: 15.3 cm in length. Mild hepatic steatosis. No hepatic enlargement. No mass. Portal Vein: Normal hepatopetal flow with monophasic waveform. Gallbladder: Gallbladder is well visualized in its entirety. There are numerous stones present as noted on the CT. There is also sludge seen. The stones are not as well visualized by ultrasound. In part this is due to body habitus and the stones are deep in the gallbladder towards the neck. CBD: 0.5 cm Pancreas: Obscured. Right kidney: 10.3 cm in length. Normal size kidney. No hydronephrosis described on CT is not identified but this was only very mild hydronephrosis. Aorta and IVC: Limited. No ascites. US/US gall bladder [id number] IMPRESSION: 1. Gallbladder sludge and stones. Stones were better visualized on the CT. Gal lbladder is not hydropic. No pericholecystic fluid. 2. No hepatobiliary duct dilatation. 3. Negative RIGHT kidney. Mild hydronephrosis described on recent CT is not id entified by ultrasound. This was only a very mild hydronephrosis.
--- NOTE | 2025-04-20 08:30 | P.CONIM_ITS ---
Providers/Reason For Consult 2 Consulting Physician/Specialty*: General Surgery Reason for Consult*: Biliar colic Primary Care Provider: Renée Hurd MD History of Present Illness History of Present Illness Navi Fletcher is a 54 year old male Who presents to ER with an episode of biliary colic. Patient has been having biliary colic for Sometime now and has been worked up for the need for laparoscopic cholecystectomy. He has been follow-up as outpatient with an outside surgeon. During workup he was found to have a kidney stone and the surgery was deferred. Kidney stone has passed but patient had a new episode of biliary colic starting yesterday night. He presented to the ER for these pain. At the moment of my evaluation pain has subsided no significant abdominal pain. The laboratory workup in the ER shows a normal white count normal LFTs except for slight elevation of the alk phos and no evidence of acute cholecystitis on ultrasound or CT scan of the abdomen. Review of Systems 2 General: Reports: 10 or more systems reviewed and unremarkable except in HPI and below Medications/Allergies Home Medications ?Medication ?Instructions ?Recorded ?Confirmed ?Last Taken ?Type sulfasalazine 500 mg tablet 1 g PO TID 02/27/2504/19/25 History Allergies Allergy/AdvReac Type Severity Reaction Status Date / Time No Known Allergies Allergy Verified 04/20/25 03:41 PFSH Acute 2 PFSH: Medical History (Updated 04/03/24 @ 15:37 by Renée Hurd MD) Separation of right acromioclavicular joint, type 3 Crohn's disease Cerebral microvascular disease White matter periventricular infarction Hydrocele, right Fatty liver Cholelithiases Facet arthropathy, lumbar History of kidney stones Surgical History History of right knee surgery History of inguinal hernia repair History of umbilical hernia repair Family History Denies family history of Diabetes CAD (coronary artery disease) Dementia Cancer Stroke Social History Smoking and tobacco/nicotine status: never used tobacco/nicotine Alcohol intake: current Alcohol intake frequency: 0-2 Drinks per Day Alcohol type: beer Substance/Drug Use: never Marital status: Number of children: 2 Current occupational status: employed Current occupation: talent development coordinator for [employer] Vitals/I&O/Wt Last Vital Signs Temp 97.6 F 04/20/25 03:35 Pulse 61 04/20/25 08:19 Resp 16 04/20/25 08:19 BP 125/79 04/20/25 08:19 Pulse Ox 95 04/20/25 08:19 O2 Del Method Room Air 04/20/25 05:51 04/19/25 04/20/25 04/20/25 22:59 06:59 14:59 Intake Total 1000 / 1000 Balance 1000 / 1000 Weight last 48 hrs Weight 200 lb Physical Exam 2 GI: OTHER: Abdominal exam is benign abdomen soft nontender nondistended Data 04/20/25 03:38 04/20/25 03:38 A&P Assessment and plan 1. Cholelithiases: 2. Fatty liver: Plan: After a complete history physical examination and review of all available clinical data the following is my assessment. Patient does not meet criteria for acute cholecystitis, there is no imaging evidence of acute cholecystitis, there is a normal white count. LFTs are Almost completely unremarkable.With this findings there is no indication for acute surgical intervention. I do agree that patient will benefit from a cholecystectomy for symptomatic cholelithiasis But this can be done in the outpatient setting. An appointment with my office will be set up for Wednesday. If patient wishes he can also follow-up with his regular surgeon to move forward with surgical intervention. Patient shows understanding agrees with the plan, warning signs have been given and I also gave him some recommendations regarding diet to prevent further episodes of biliary colic until he gets his operation. He shows understanding PDMP PDMP Reviewed: Not Reviewed Coding Level of Care Code Acute Code for Chg Fwd Diagnoses Cholelithiases K80.20 Fatty liver K76.0
== END 2025-04-20 09:03 | disposition home or self-care (01) ==
PROVIDERS: Emergency Provider Family Medicine; PCP Family Medicine
DX: K80.50 Calculus of bile duct without cholangitis or cholecystitis without obstruction (principal); K82.8 Other specified diseases of gallbladder
CPT/HCPCS: 74176; 76705; 80053; 81001; 83690; 85025; 96361; 96374; 96375; 99285; J1171; J2270; J2405; J7030